=== PATIENT | female | born 1945 | race Caucasian/White ===

== ENCOUNTER → 2018-02-13 | Outpatient (CLI) | payer MEDICARE | END | disposition home or self-care (01) | LOC: CVU 09:12 | PROVIDERS: ATTEND Internal Medicine Cardiovascular Disease | DX: I10 Essential (primary) hypertension (principal); I73.9 Peripheral vascular disease, unspecified; M25.561 Pain in right knee; M25.562 Pain in left knee; M25.552 Pain in left hip; R10.9 Unspecified abdominal pain | CPT/HCPCS: 93017; 93922 ==

== ENCOUNTER → 2019-02-27 | Outpatient (CLI) | payer MEDICARE | END | disposition home or self-care (01) | LOC: CFH 13:58 | PROVIDERS: ATTEND Family Medicine | DX: M25.471 Effusion, right ankle (principal); M25.474 Effusion, right foot | CPT/HCPCS: 93970 ==

== ENCOUNTER 2021-07-17 15:45 | Outpatient (CLI) | payer MEDICARE | END 2021-07-17 23:59 | disposition home or self-care (01) | LOC: CVU 15:45 | PROVIDERS: ATTEND Family Medicine | DX: I35.8 Other nonrheumatic aortic valve disorders (principal); I10 Essential (primary) hypertension; M25.471 Effusion, right ankle; M25.472 Effusion, left ankle | CPT/HCPCS: 93306 ==

== ENCOUNTER → 2021-08-04 | Outpatient (CLI) | payer MEDICARE | END | disposition home or self-care (01) | LOC: CVU 07:17 | PROVIDERS: ATTEND Internal Medicine Cardiovascular Disease | DX: I83.93 Asymptomatic varicose veins of bilateral lower extremities (principal); I10 Essential (primary) hypertension; M79.89 Other specified soft tissue disorders | CPT/HCPCS: 93970 ==